=== PATIENT | female | born 2000 | race Hispanic/Latino ===

== ENCOUNTER 2018-03-21 18:37 | Emergency (ER) | payer OTHER, SELFPAY ==
[2018-03-21 18:45] VITALS: BP 108/65; PULSE 99; RESP 20; TEMP 37.1; O2SAT 100; BMI 21.9
--- NOTE | 2018-03-21 19:01 | ED_ITS ---
HPI - General Adult <AMANDA Geiger - Last Filed: 03/21/18 22:12> General Chief complaint: Toxicology Problem Stated complaint: OD EARLIER Time Seen by Provider: 03/21/18 18:51 Source: patient and family Mode of arrival: ambulatory Limitations: no limitations History of Present Illness HPI narrative: 17-year-old healthy female does not everyday smoker here for complaint of having a overdose earlier today. She states that she took a 1 mg Xanax tablets and also a no other street made tablet that potentially had 30 mg of oxycodone and fentanyl. She also states that she used THC and she may have drinking some alcohol at the same timeframe. She denies any other medication or drug use. She states that this was early afternoon and that her boyfriend found her passed out in the kitchen. He had nasal Narcan available and gave her Narcan and she week at a unknown amount of time after the Narcan was given. She reports that she feels sleepy at this time she has a little bit of headache to the top of her head she states that she may have hit her head when she fell. She also states she had episode of having a nausea and vomiting earlier. She denies any fevers. She denies having any homicidal or suicidal ideation. She states that she use the medications as she wanted to get high. Related Data Home Medications Medication Instructions Recorded Confirmed [TOPICAL MED] #0 07/12/17 rizatriptan [Maxalt] 10 mg #0 07/12/17 Previous Rx's Medication Instructions Recorded cyclobenzaprine 10 mg PO Q8HP PRN #15 tab 07/12/17 ibuprofen 800 mg PO Q8HP PRN #30 tab 07/12/17 naloxone [Narcan] 4 mg NASAL Q3M PRN #2 each 03/21/18 Allergies Allergy/AdvReac Type Severity Reaction Status Date / Time No Known Allergies Allergy Uncoded 03/21/18 19:09 Review of Systems <AMANDA Geiger - Last Filed: 03/21/18 22:12> Constitutional Denies chills, Denies fever(s), Denies lethargy and Denies weakness Eyes Denies change in vision, Denies eye discharge, Denies irritation and Denies loss of vision ENT Ears, Nose, Mouth, and Throat: Denies change in voice, Denies neck pain and Denies sore throat Cardiovascular Denies chest pain, Denies irregular heart rhythm, Denies lightheadedness, Denies palpitations, Denies dyspnea, Denies dyspnea on exertion and Denies orthopnea Respiratory Denies cough, Denies dyspnea, Denies dyspnea on exertion and Denies wheezing Gastrointestinal Gastrointestinal: Denies abdominal pain, Denies change in bowel habits, Denies diarrhea, Denies nausea and Denies vomiting Genitourinary Denies hematuria, Denies flank pain, Denies urinary incontinence and Denies urinary urgency Musculoskeletal Denies neck pain Integumentary/Breasts Denies pruritus, Denies erythema, Denies rash and Denies wounds Neurologic Denies confusion, Denies loss of vision and Denies weakness Comments: Loss of consciousness after opiate use Psychiatric Denies anxiety, Denies confusion, Denies depression, Denies homicidal ideation and Denies suicidal ideation Endocrine Denies palpitations Hematologic/Lymphatic Denies easy bruising Allergic/Immunologic Denies wheezing Exam <AMANDA Geiger - Last Filed: 03/21/18 22:12> Initial Vital Signs Initial Vital Signs: Vital Signs Temperature 98.8 F 03/21/18 18:45 Pulse Rate 99 H 03/21/18 18:45 Respiratory Rate 20 03/21/18 18:45 Blood Pressure 108/65 03/21/18 18:45 Pulse Oximetry 100 03/21/18 18:45 Const General: cooperative and well developed Nutritional Appearance: well nourished Orientation: alert, awake, oriented x3 and not confused [facility] Mouth: oral mucosae normal and mucous membranes abnormal Eyes Conjunctivae: conjunctivae normal Sclera: sclerae normal Pupils: PERRL EOM: EOM intact bilaterally Resp Effort & Inspection: normal respiratory effort, able to speak in complete sentences, no respiratory distress and no use of accessory muscles Auscultation: clear to auscultation bilaterally, no rales, no rhonchi and no wheezes Cardio Rate: regular rate Rhythm: regular rhythm Heart Sounds: no click, no gallops, no murmurs and no rubs Pulses: normal peripheral pulses Skin General: no rashes or lesions noted, No jaundice and No petechiae Neuro General: alert, oriented x3, gait normal and no focal motor deficits Speech: speech normal <Radha Craig DO - Last Filed: 03/22/18 01:13> Initial Vital Signs Initial Vital Signs: Vital Signs Temperature 98.8 F 03/21/18 18:45 Pulse Rate 99 H 03/21/18 18:45 Respiratory Rate 20 03/21/18 18:45 Blood Pressure 108/65 03/21/18 18:45 Pulse Oximetry 100 03/21/18 18:45 Course <AMANDA Geiger - Last Filed: 03/21/18 22:12> Orders Ordered: ED Orders 03/21/18 19:28 CT head/brain wo con Stat XR chest 1V Stat 03/21/18 19:45 Complete Blood Count AUTO DIFF Stat Comprehensive Metabolic Panel Stat Ethanol (ETOH) Stat 03/21/18 20:40 Test Urine Stat Urinalysis and Microscopic Stat Urine Drug Screen, Rapid Stat Discontinued Medications Sodium Chloride (Normal Saline 0.9%) 1,000 mls @ 1,000 mls/hr IV BOLUS ONE Stop: 03/21/18 20:30 Last Infusion: 03/21/18 21:37 Dose: 0 mls/hr Admin: 03/21/18 20:11 Dose: 1,000 mls/hr Vital Signs - 8 hr 03/21/18 18:45 03/21/18 21:37 Temperature 98.8 F Pulse Rate 99 H 85 Respiratory Rate 20 16 Blood Pressure 108/65 97/57 L Pulse Oximetry 100 100 <Radha Craig DO - Last Filed: 03/22/18 01:13> Orders Ordered: ED Orders 03/21/18 19:28 CT head/brain wo con Stat XR chest 1V Stat 03/21/18 19:45 Complete Blood Count AUTO DIFF Stat Comprehensive Metabolic Panel Stat Ethanol (ETOH) Stat 03/21/18 20:40 Test Urine Stat Urinalysis and Microscopic Stat Urine Drug Screen, Rapid Stat Discontinued Medications Sodium Chloride (Normal Saline 0.9%) 1,000 mls @ 1,000 mls/hr IV BOLUS ONE Stop: 03/21/18 20:30 Last Infusion: 03/21/18 21:37 Dose: 0 mls/hr Admin: 03/21/18 20:11 Dose: 1,000 mls/hr Vital Signs - 8 hr 03/21/18 18:45 03/21/18 21:37 Temperature 98.8 F Pulse Rate 99 H 85 Respiratory Rate 20 16 Blood Pressure 108/65 97/57 L Pulse Oximetry 100 100 Medical Decision Making <AMANDA Geiger - Last Filed: 03/21/18 22:12> Lab Data Result diagrams: 03/21/18 19:45 03/21/18 19:45 Lab Results 03/21/18 03/21/18 03/21/18 Range/Units 19:45 19:45 19:45 WBC 12.1 H (4.5-11.0) X10^3/uL RBC 4.11 (4.0-5.2) X10^6/uL Hgb 12.3 (12.0-16.0) g/dL Hct 35.5 L (36-46) % MCV 86.4 (80-100) fL MCH 29.9 (26-34) PG MCHC 34.6 (30-36) % RDW 14.5 (11.6-14.8) % Plt Count 371 (150-400) X10^3/uL Neut % (Auto) 79.8 H (50-75) % Lymph % (Auto) 11.5 L (25-40) % [place] % (Auto) 8.3 (3-14) % Eos % (Auto) 0.1 L (2-4) % Baso % (Auto) 0.3 (0-2) % Neut # (Auto) 9700 H (6663-1306) /uL Sodium 142 (137-145) mmol/L Potassium 3.3 L (3.4-5.1) mmol/L Chloride 103 (98-107) mmol/L Carbon Dioxide 24 (22-32) mmol/L BUN 8 (7-17) mg/dL Creatinine 0.70 (0.52-1.04) mg/dL Estimated GFR > 60.0 (>60) mL/min BUN/Creatinine Ratio 11.4 (6-22) Glucose 77 (70-100) mg/dL Calcium 8.9 (8.4-10.2) mg/dL Total Bilirubin 0.3 (0.2-1.3) mg/dL AST 22 (14-36) IU/L ALT 22 (9-52) IU/L Alkaline Phosphatase 62 (38-126) U/L Total Protein 6.9 (6.3-8.2) g/dL Albumin 4.0 (3.5-5.0) g/dL Globulin 2.9 (1.7-4.1) g/dL Albumin/Globulin Ratio 1.4 (1.0-2.8) Urine Color Urine Appearance Urine pH (4.5-8.0) Ur Specific [place] (1.000-1.035) Urine Protein (Negative) Urine Glucose (UA) (Normal) g/dL Urine Ketones (NEGATIVE) Urine Occult Blood (Negative) Urine Nitrate (Negative) Urine Bilirubin (NEGATIVE) Urine Urobilinogen (0.2) E.U./dL Ur Leukocyte Esterase (NEGATIVE) Urine RBC (0-5/HPF) Urine WBC (0-5/HPF) Ur Squamous Epith Cells Urine Bacteria (None) Ur Culture Indicated? Micro UA Comment Urine Test (Negative) Urine Opiates Screen (Negative) Ur Oxycodone Screen (Negative) Urine Methadone Screen (Negative) Ur Barbiturates Screen (Negative) U Tricyclic Antidepress (Negative) Ur Phencyclidine Scrn (Negative) Ur Amphetamines Screen (Negative) U Methamphetamines Scrn (Negative) Ur MDMA Scrn (Ecstasy) (Negative) U Benzodiazepines Scrn (Negative) Urine Cocaine Screen (Negative) U Marijuana (THC) Screen (Negative) Ethyl Alcohol < 10 mg/dL 03/21/18 03/21/18 03/21/18 Range/Units 20:40 20:40 20:40 WBC (4.5-11.0) X10^3/uL RBC (4.0-5.2) X10^6/uL Hgb (12.0-16.0) g/dL Hct (36-46) % MCV (80-100) fL MCH (26-34) PG MCHC (30-36) % RDW (11.6-14.8) % Plt Count (150-400) X10^3/uL Neut % (Auto) (50-75) % Lymph % (Auto) (25-40) % [place] % (Auto) (3-14) % Eos % (Auto) (2-4) % Baso % (Auto) (0-2) % Neut # (Auto) (9315-7915) /uL Sodium (137-145) mmol/L Potassium (3.4-5.1) mmol/L Chloride (98-107) mmol/L Carbon Dioxide (22-32) mmol/L BUN (7-17) mg/dL Creatinine (0.52-1.04) mg/dL Estimated GFR (>60) mL/min BUN/Creatinine Ratio (6-22) Glucose (70-100) mg/dL Calcium (8.4-10.2) mg/dL Total Bilirubin (0.2-1.3) mg/dL AST (14-36) IU/L ALT (9-52) IU/L Alkaline Phosphatase (38-126) U/L Total Protein (6.3-8.2) g/dL Albumin (3.5-5.0) g/dL Globulin (1.7-4.1) g/dL Albumin/Globulin Ratio (1.0-2.8) Urine Color Yellow Urine Appearance Clear Urine pH 5.5 (4.5-8.0) Ur Specific [place] 1.015 (1.000-1.035) Urine Protein Negative (Negative) Urine Glucose (UA) Negative (Normal) g/dL Urine Ketones 2+ H (NEGATIVE) Urine Occult Blood Negative (Negative) Urine Nitrate Negative (Negative) Urine Bilirubin Negative (NEGATIVE) Urine Urobilinogen 0.2 (0.2) E.U./dL Ur Leukocyte Esterase Negative (NEGATIVE) Urine RBC 0-1/hpf (0-5/HPF) Urine WBC 0-1/hpf (0-5/HPF) Ur Squamous Epith Cells 0-1 /hpf Urine Bacteria None seen (None) Ur Culture Indicated? Not Reportable Micro UA Comment Not Reportable Urine Test Negative (Negative) Urine Opiates Screen Negative (Negative) Ur Oxycodone Screen Negative (Negative) Urine Methadone Screen Negative (Negative) Ur Barbiturates Screen Negative (Negative) U Tricyclic Antidepress Negative (Negative) Ur Phencyclidine Scrn Negative (Negative) Ur Amphetamines Screen Negative (Negative) U Methamphetamines Scrn Negative (Negative) Ur MDMA Scrn (Ecstasy) Negative (Negative) U Benzodiazepines Scrn Positive H (Negative) Urine Cocaine Screen Positive H (Negative) U Marijuana (THC) Screen Positive H (Negative) Ethyl Alcohol mg/dL Imaging Data Chest x-ray: Radiologist's impression: ALYC[facility] [id number] XRay Report Signed Patient: Latonya Khan [facility]#: [id number] : 2000Acct:[id number] Age/Sex: 17 / FDate of Service: 03/21/18 Loc: ED Accession Number: [id number] Procedure: XR chest 1V Ordering Provider: Marc Davidson PROCEDURE: XR CHEST 1V INDICATIONS: Nausea vomiting earlier with drug overdose TECHNIQUE: One view of the chest was acquired. COMPARISON: None. FINDINGS: Surgical changes and devices: None. Lungs and pleura: No pleural effusions or pneumothorax. Lungs are clear. Mediastinum: Mediastinal contours appear normal. Heart size is normal. Bones and chest wall: No suspicious bony lesions. Overlying soft tissues appear unremarkable. IMPRESSION: No aspiration seen, normal for age. Dictated by: Terrence Feliz M.D. on 03/21/2018 at 20:38 Approved by: Terrence Feliz M.D. on 03/21/2018 at 20:38 CT scan - head: Radiologist's impression: [address] [place] [address] CT Scan Report Signed Patient: Latonya Khan EMR#: [id number] : 2000Acct:[id number] Age/Sex: 17 / FDate of Service: 03/21/18 Loc: ED Accession Number: [id number] Procedure: CT head/brain wo con Ordering Provider: Marc Davidson PROCEDURE: CT HEAD/BRAIN WO CON INDICATIONS: Possible overdose, loss of consciousness now with headache TECHNIQUE: Noncontrast 4.5 mm thick angled axial sections acquired from the foramen magnum to the vertex, with coronal and sagittal reformats. For radiation dose reduction, the following was used: automated exposure control, adjustment of mA and/or kV according to patient size. COMPARISON: None. FINDINGS: Image quality: Excellent. CSF spaces: Basal cisterns are patent. No extra-axial fluid collections. Ventricles are normal in size and shape. Brain: No midline shift. No intracranial masses or hemorrhage. [place]-white matter interface is normal. Skull and face: Calvarium and visualized facial bones are intact, without suspicious lesions. Sinuses: Visualized sinuses and mastoids are clear. IMPRESSION: No source of headache is found. Dictated by: Terrence Feliz M.D. on 03/21/2018 at 20:38 Approved by: Terrence Feliz M.D. on 03/21/2018 at 20:39 MDM Narrative Medical decision making narrative: CT of the head was obtained was negative for any acute findings. Chest x-ray was obtained was also negative for any acute findings. CBC shows slightly elevated white count of 12 kg and elevated neutrophils otherwise is remarkable. Chemistry panel was obtained and was unremarkable. Urinalysis was negative for and also for urinary tract infection. Urine drug screen was positive for benzodiazepines, THC and cocaine. Patient vital signs and level of consciousness was stable while in the emergency room. Medications that were positive on her urine tox screen indicates that we are out of the danger window. She is released home with family supervision for the evening to ensure is doing well. Follow up with primary care provider. Repeat prescription for Narcan is provided for family to have on hand in case of any future overdoses. For any worsening symptoms return to the emergency room. <Radha Craig, DO - Last Filed: 03/22/18 01:13> Lab Data Lab Results 03/21/18 03/21/18 03/21/18 Range/Units 19:45 19:45 19:45 WBC 12.1 H (4.5-11.0) X10^3/uL RBC 4.11 (4.0-5.2) X10^6/uL Hgb 12.3 (12.0-16.0) g/dL Hct 35.5 L (36-46) % MCV 86.4 (80-100) fL MCH 29.9 (26-34) PG MCHC 34.6 (30-36) % RDW 14.5 (11.6-14.8) % Plt Count 371 (150-400) X10^3/uL Neut % (Auto) 79.8 H (50-75) % Lymph % (Auto) 11.5 L (25-40) % [place] % (Auto) 8.3 (3-14) % Eos % (Auto) 0.1 L (2-4) % Baso % (Auto) 0.3 (0-2) % Neut # (Auto) 9700 H (0369-6818) /uL Sodium 142 (137-145) mmol/L Potassium 3.3 L (3.4-5.1) mmol/L Chloride 103 (98-107) mmol/L Carbon Dioxide 24 (22-32) mmol/L BUN 8 (7-17) mg/dL Creatinine 0.70 (0.52-1.04) mg/dL Estimated GFR > 60.0 (>60) mL/min BUN/Creatinine Ratio 11.4 (6-22) Glucose 77 (70-100) mg/dL Calcium 8.9 (8.4-10.2) mg/dL Total Bilirubin 0.3 (0.2-1.3) mg/dL AST 22 (14-36) IU/L ALT 22 (9-52) IU/L Alkaline Phosphatase 62 (38-126) U/L Total Protein 6.9 (6.3-8.2) g/dL Albumin 4.0 (3.5-5.0) g/dL Globulin 2.9 (1.7-4.1) g/dL Albumin/Globulin Ratio 1.4 (1.0-2.8) Urine Color Urine Appearance Urine pH (4.5-8.0) Ur Specific [place] (1.000-1.035) Urine Protein (Negative) Urine Glucose (UA) (Normal) g/dL Urine Ketones (NEGATIVE) Urine Occult Blood (Negative) Urine Nitrate (Negative) Urine Bilirubin (NEGATIVE) Urine Urobilinogen (0.2) E.U./dL Ur Leukocyte Esterase (NEGATIVE) Urine RBC (0-5/HPF) Urine WBC (0-5/HPF) Ur Squamous Epith Cells Urine Bacteria (None) Ur Culture Indicated? Micro UA Comment Urine Test (Negative) Urine Opiates Screen (Negative) Ur Oxycodone Screen (Negative) Urine Methadone Screen (Negative) Ur Barbiturates Screen (Negative) U Tricyclic Antidepress (Negative) Ur Phencyclidine Scrn (Negative) Ur Amphetamines Screen (Negative) U Methamphetamines Scrn (Negative) Ur MDMA Scrn (Ecstasy) (Negative) U Benzodiazepines Scrn (Negative) Urine Cocaine Screen (Negative) U Marijuana (THC) Screen (Negative) Ethyl Alcohol < 10 mg/dL 03/21/18 03/21/18 03/21/18 Range/Units 20:40 20:40 20:40 WBC (4.5-11.0) X10^3/uL RBC (4.0-5.2) X10^6/uL Hgb (12.0-16.0) g/dL Hct (36-46) % MCV (80-100) fL MCH (26-34) PG MCHC (30-36) % RDW (11.6-14.8) % Plt Count (150-400) X10^3/uL Neut % (Auto) (50-75) % Lymph % (Auto) (25-40) % [place] % (Auto) (3-14) % Eos % (Auto) (2-4) % Baso % (Auto) (0-2) % Neut # (Auto) (6374-0230) /uL Sodium (137-145) mmol/L Potassium (3.4-5.1) mmol/L Chloride (98-107) mmol/L Carbon Dioxide (22-32) mmol/L BUN (7-17) mg/dL Creatinine (0.52-1.04) mg/dL Estimated GFR (>60) mL/min BUN/Creatinine Ratio (6-22) Glucose (70-100) mg/dL Calcium (8.4-10.2) mg/dL Total Bilirubin (0.2-1.3) mg/dL AST (14-36) IU/L ALT (9-52) IU/L Alkaline Phosphatase (38-126) U/L Total Protein (6.3-8.2) g/dL Albumin (3.5-5.0) g/dL Globulin (1.7-4.1) g/dL Albumin/Globulin Ratio (1.0-2.8) Urine Color Yellow Urine Appearance Clear Urine pH 5.5 (4.5-8.0) Ur Specific [place] 1.015 (1.000-1.035) Urine Protein Negative (Negative) Urine Glucose (UA) Negative (Normal) g/dL Urine Ketones 2+ H (NEGATIVE) Urine Occult Blood Negative (Negative) Urine Nitrate Negative (Negative) Urine Bilirubin Negative (NEGATIVE) Urine Urobilinogen 0.2 (0.2) E.U./dL Ur Leukocyte Esterase Negative (NEGATIVE) Urine RBC 0-1/hpf (0-5/HPF) Urine WBC 0-1/hpf (0-5/HPF) Ur Squamous Epith Cells 0-1 /hpf Urine Bacteria None seen (None) Ur Culture Indicated? Not Reportable Micro UA Comment Not Reportable Urine Test Negative (Negative) Urine Opiates Screen Negative (Negative) Ur Oxycodone Screen Negative (Negative) Urine Methadone Screen Negative (Negative) Ur Barbiturates Screen Negative (Negative) U Tricyclic Antidepress Negative (Negative) Ur Phencyclidine Scrn Negative (Negative) Ur Amphetamines Screen Negative (Negative) U Methamphetamines Scrn Negative (Negative) Ur MDMA Scrn (Ecstasy) Negative (Negative) U Benzodiazepines Scrn Positive H (Negative) Urine Cocaine Screen Positive H (Negative) U Marijuana (THC) Screen Positive H (Negative) Ethyl Alcohol mg/dL Discharge Plan Departure Patient Disposition: Home Clinical Impression: Drug overdose Discharge Date/Time: 03/21/18 21:39 Interventions: ED Discharge Assessment Last Done: 03/21/18 21:37 Instructions: DI for Drug Overdose in Adults Activity Restrictions/Additional Instructions: Imaging today was obtained was unremarkable. Laboratory results with exception of a toxicology screening was unremarkable. Follow up with primary care provider next week for re-evaluation. Recommend stop using any street drugs especially if you do not know the contents of the drugs you are taking. Refill of Narcan as provided in case of a future overdose. For any worsening symptoms return to the emergency room. Prescriptions: New naloxone [Narcan] 4 mg/actuation spray,non-aerosol 4 mg NASAL Q3M PRN (Reason: opioid overdose) Qty: 2 RF: 0 No Action rizatriptan [Maxalt] 10 MG tablet 10 mg Qty: 0 RF: 0 [TOPICAL MED] Qty: 0 RF: 0 cyclobenzaprine 10 MG tablet 10 mg PO Q8HP PRNQty: 15 RF: 0 ibuprofen 800 MG tablet 800 mg PO Q8HP PRNQty: 30 RF: 0 Referrals: [facility] [Provider Group] Stand Alone Forms: Work/School Restrictions <Radha Craig DO - Last Filed: 03/22/18 01:13> Cosign ED Attending Odalisature Attestation: I was immediately available in the department for consultation. This documentation has been reviewed and I agree with assessment and plan. Supervised by Radha Craig DO
--- NOTE | 2018-03-21 19:28 | DI.CT.S_ITS ---
PROCEDURE: CT HEAD/BRAIN WO CON INDICATIONS: Possible overdose, loss of consciousness now with headache TECHNIQUE: Noncontrast 4.5 mm thick angled axial sections acquired from the foramen magnum to the vertex, with coronal and sagittal reformats. For radiation dose reduction, the following was used: automated exposure control, adjustment of mA and/or kV according to patient size. COMPARISON: None. FINDINGS: Image quality: Excellent. CSF spaces: Basal cisterns are patent. No extra-axial fluid collections. Ventricles are normal in size and shape. Brain: No midline shift. No intracranial masses or hemorrhage. [place]-white matter interface is normal. Skull and face: Calvarium and visualized facial bones are intact, without suspicious lesions. Sinuses: Visualized sinuses and mastoids are clear. IMPRESSION: No source of headache is found. Dictated by: Terrence Feliz M.D. on 03/21/2018 at 20:38 Approved by: Terrence Feliz M.D. on 03/21/2018 at 20:39
--- NOTE | 2018-03-21 19:28 | DI.RAD.S_ITS ---
PROCEDURE: XR CHEST 1V INDICATIONS: Nausea vomiting earlier with drug overdose TECHNIQUE: One view of the chest was acquired. COMPARISON: None. FINDINGS: Surgical changes and devices: None. Lungs and pleura: No pleural effusions or pneumothorax. Lungs are clear. Mediastinum: Mediastinal contours appear normal. Heart size is normal. Bones and chest wall: No suspicious bony lesions. Overlying soft tissues appear unremarkable. IMPRESSION: No aspiration seen, normal for age. Dictated by: Terrence Feliz M.D. on 03/21/2018 at 20:38 Approved by: Terrence Feliz M.D. on 03/21/2018 at 20:38
[2018-03-21 20:01] LABS: Add Manual Diff / Slide Review NO; Basophils Percent Auto 0.3 % (0-2); Eosinophils Percent Auto 0.1 % (2-4); Hematocrit 35.5 % (36-46); Hemoglobin 12.3 g/dL (12.0-16.0); Lymphocytes Percent Auto 11.5 % (25-40); Mean Corpuscular HGB Conc 34.6 % (30-36); Mean Corpuscular Hemoglobin 29.9 PG (26-34); Mean Corpuscular Volume 86.4 fL (80-100); Monocytes Percent Auto 8.3 % (3-14); Neutrophils Absolute Auto 9700 /uL (3000-5900); Neutrophils Percent Auto 79.8 % (50-75); Platelet Count 371 X10^3/uL (150-400); Red Blood Cell Count 4.11 X10^6/uL (4.0-5.2); Red Cell Distribution Width 14.5 % (11.6-14.8); White Blood Cell Count 12.1 X10^3/uL (4.5-11.0)
[2018-03-21] MEDS: SODIUM CHLORIDE 0.9% 1,000 ML 1000 ML IV (20:11)
[2018-03-21 20:19] LABS: Alanine Aminotransferase 22 IU/L (9-52); Albumin Globulin Ratio 1.4 (1.0-2.8); Alkaline Phosphatase 62 U/L (38-126); Aspartate Aminotransferase 22 IU/L (14-36); BUN Creatinine Ratio 11.4 (6-22); Bilirubin Total 0.3 mg/dL (0.2-1.3); Blood Urea Nitrogen 8 mg/dL (7-17); Calcium 8.9 mg/dL (8.4-10.2); Carbon Dioxide 24 mmol/L (22-32); Chloride 103 mmol/L (98-107); Estimated Glomerular Filt Rate > 60.0 mL/min (>60); Globulin 2.9 g/dL (1.7-4.1); Glucose 77 mg/dL (70-100); HEMOLYSIS < 15 (0-50); Potassium 3.3 mmol/L (3.4-5.1); Sodium 142 mmol/L (137-145); Total Protein 6.9 g/dL (6.3-8.2)
[2018-03-21 20:26] LABS: Ethanol (ETOH) < 10 mg/dL
[2018-03-21 20:48] LABS: Bacteria Urine None Seen
[2018-03-21 20:55] LABS: Pregnancy Test Urine Negative (Negative); Urine Amphetamines Negative (Negative); Urine Barbiturates Negative (Negative); Urine Benzodiazepines Positive (Negative); Urine Cocaine Positive (Negative); Urine MDMA Negative (Negative); Urine Methadone Negative (Negative); Urine Methamphetamines Negative (Negative); Urine Morphine/Opi cutoff 2000 Negative (Negative); Urine Oxycodone Negative (Negative); Urine Phencyclidine Negative (Negative); Urine Tetrahydrocannabinol Positive (Negative); Urine Tricyclic Antidepressant Negative (Negative)
[2018-03-21 20:57] LABS: Appearance Urine UA CLEAR; Bilirubin Urine UA NEGATIVE (NEGATIVE); Color Urine UA YELLOW; Glucose Urine UA NEGATIVE (Normal); Ketones Urine UA 2+ (NEGATIVE); Leukocyte Esterase Urine UA NEGATIVE (NEGATIVE); Nitrite Urine UA NEGATIVE (Negative); Occult Blood Urine UA NEGATIVE (Negative); Protein Urine UA NEGATIVE (Negative); Specific Gravity Urine UA 1.015 (1.000-1.035); Urobilinogen Urine UA 0.2 E.U./dL (0.2); pH Urine UA 5.5 (4.5-8.0)
[2018-03-21 21:05] LABS: RBC Urine 0-1/HPF (0-5/HPF); Squamous Epithelial Cell Urine 0-1 /HPF; WBC Urine 0-1/HPF (0-5/HPF)
[2018-03-21 21:37] VITALS: BP 97/57; PULSE 85; RESP 16; O2SAT 100
== END 2018-03-21 21:39 | disposition home or self-care (01) ==
PROVIDERS: Emergency Provider Nurse Practitioner Family
DX: T50.901A Poisoning by unspecified drugs, medicaments and biological substances, accidental (unintentional), initial encounter (principal)
CPT/HCPCS: 36591; 70450; 71045; 80053; 80305; 80320; 81001; 81025; 85025; 96360; 99283; 99285